=== PATIENT | female | born 1965 | race Caucasian/White ===

== ENCOUNTER → 2025-06-22 07:43 | Outpatient (REF) | payer OTHER, SELFPAY | LOC: MRI 3T 07:43 | PROVIDERS: ATTENDING PHYSICIAN Internal Medicine | DX: M51.9 Unspecified thoracic, thoracolumbar and lumbosacral intervertebral disc disorder (principal); M54.16 Radiculopathy, lumbar region | CPT/HCPCS: 72148 ==

== ENCOUNTER 2025-10-02 17:30 | Emergency (ER) | payer OTHER, SELFPAY ==
[2025-10-02 17:32] VITALS: BP 149/84
[2025-10-02 17:59] LABS: Urine Character Clear (Clear)
[2025-10-02 18:05] VITALS: BP 118/79
[2025-10-02 18:10] LABS: Urine Red Blood Cell 26-30 /HPF (0-2); Urine Squamous Cell 0-2 /LPF (Few)
[2025-10-02 18:11] VITALS: BMI 26.3
--- NOTE | 2025-10-02 18:29 | ED.GENMED ---
History of Present Illness
<Lidya Gaona, INFRASTRUCTURE ADMINISTRATOR - Last Filed: 10/02/25 19:59>
General
Chief Complaint: Abdominal Pain
Source: patient
Exam Limitations: none
Time Seen by Provider: 10/02/25 18:07
Nursing documentation reviewed up to this point in time: agreed with
History of Present Illness
History of Present Illness:
60-year-old female with history of frequent urinary tract infections presents for left flank and left-sided abdominal pain which she woke up with yesterday at 530 and it was 9/10 with nausea and vomited once. She took Tylenol which helped a little
and today her pain has persisted and is at this time 6/10. She denies fever or chills. She states this feels different than her UTIs although she does have some burning with urinating.
Past History
<Lidya Gaona, INFRASTRUCTURE ADMINISTRATOR - Last Filed: 10/02/25 19:59>
Past History
ED Past Medical History: None
ED Past Surgical History: None
Social History
Tobacco: Non-smoker
Alcohol: None
Drug: None
Living: alone
Employment: Employed
Review of Systems
<Lidya Gaona, INFRASTRUCTURE ADMINISTRATOR - Last Filed: 10/02/25 19:59>
Review of Systems
Allergies reviewed?: Yes
All Other Systems: ROS reviewed and negative except as documented in HPI and ROS
Phy Exam
<Lidya Gaona, INFRASTRUCTURE ADMINISTRATOR - Last Filed: 10/02/25 19:59>
Physical Exam
Physical Exam:
GENERAL: No acute distress. A&Ox3.
CONSTITUTIONAL: Afebrile.
EYES: clear, conjunctivae normal
ENMT: moist mucus membranes
RESPIRATORY: Regular respirations, nonlabored, lungs clear.
CARDIOVASCULAR: Regular rate and rhythm, no murmurs, no rubs.
GI: Soft, tender to palpate left abdomen, mild left flank tenderness. normal BS
MUSCULOSKELETAL: Moves with ease. Well perfused.
SKIN: Warm, dry, pink
PSYCH: Normal mood and affect. Well kept, interactive and appropriate
NEUROLOGIC: Awake, alert and oriented. No focal neurological deficits
Course
<Lidyarosibel Gaona, INFRASTRUCTURE ADMINISTRATOR - Last Filed: 10/02/25 19:59>
Orders/Labs/Results
Orders:
Orders
10/02/25 17:44
Urinalysis Reflex To Culture Urgent
Date Specimen was Collected: 10/02/25
Time Specimen was Collected: 17:39
Urine Microscopic Reflex Cult Urgent
Urine Culture Urgent
NORA Source: U
Specimen Description:
Date Specimen was Collected: 10/02/25
Time Specimen was Collected: 17:39
10/02/25 18:17
CT Abd/pel Without Iv Or Oral Urgent
Comment:
Reason For Exam: flank pain, hematuria
10/02/25 18:22
Complete Blood Count/With Diff Urgent
Comprehensive Metabolic Panel Urgent
10/02/25 18:27
Ketorolac [Toradol] 15 mg IV NOW STA
Ondansetron Injectable [Zofran] 4 mg IV NOW STA
10/02/25 19:44
Tamsulosin [Flomax] 0.4 mg PO NOW STA
10/02/25 19:54
Cephalexin Monohydrate [Keflex] 500 mg PO NOW STA
Abnormal Lab Results
10/02/25 10/02/25
17:44 18:22
RBC 3.98 L 10^6/uL
(4.20-5.40)
Hgb 11.6 L g/dL
(12.0-16.0)
Hct 33.9 L %
(37.0-47.0)
Sodium 133 L mmol/L
(135-145)
BUN 21 H mg/dl
(7-17)
Ur Occult Blood Reflex 4+ A
(Negative)
Urine Nitrite (Reflex) Positive A
(Negative)
Urine Bilirubin 1+ A
(Negative)
Leukocyte Esterase Rfl 3+ A
(Negative)
Urine RBC 26-30 A /HPF
(0-2)
Urine Bacteria (Reflex) Many A
(Negative)
Urine Albumin (Reflex) 1+ A
(Neg - Trace)
10/02/25 18:22
10/02/25 18:22
Vital Signs
Initial and Last Documented VS:
Initial Vital Signs
Temp Pulse Resp BP Pulse Ox
98.1 F 74 18 149/84 99
10/02/25 17:32 10/02/25 17:32 10/02/25 17:32 10/02/25 17:32 10/02/25 17:32
Last Documented Vital Signs
Temp Pulse Resp BP Pulse Ox
98.1 F 68 16 109/70 98
10/02/25 17:32 10/02/25 20:31 10/02/25 20:31 10/02/25 20:28 10/02/25 20:31
<Jennifer Varma, INFRASTRUCTURE ADMINISTRATOR - Last Filed: 10/03/25 15:39>
Orders/Labs/Results
Orders:
Orders
10/02/25 17:44
Urinalysis Reflex To Culture Urgent
Date Specimen was Collected: 10/02/25
Time Specimen was Collected: 17:39
Urine Microscopic Reflex Cult Urgent
Urine Culture Urgent
NORA Source: U
Specimen Description:
Date Specimen was Collected: 10/02/25
Time Specimen was Collected: 17:39
10/02/25 18:17
CT Abd/pel Without Iv Or Oral Urgent
Comment:
Reason For Exam: flank pain, hematuria
10/02/25 18:22
Complete Blood Count/With Diff Urgent
Comprehensive Metabolic Panel Urgent
10/02/25 18:27
Ketorolac [Toradol] 15 mg IV NOW STA
Ondansetron Injectable [Zofran] 4 mg IV NOW STA
10/02/25 19:44
Tamsulosin [Flomax] 0.4 mg PO NOW STA
10/02/25 19:54
Cephalexin Monohydrate [Keflex] 500 mg PO NOW STA
Abnormal Lab Results
10/02/25 10/02/25
17:44 18:22
RBC 3.98 L 10^6/uL
(4.20-5.40)
Hgb 11.6 L g/dL
(12.0-16.0)
Hct 33.9 L %
(37.0-47.0)
Sodium 133 L mmol/L
(135-145)
BUN 21 H mg/dl
(7-17)
Ur Occult Blood Reflex 4+ A
(Negative)
Urine Nitrite (Reflex) Positive A
(Negative)
Urine Bilirubin 1+ A
(Negative)
Leukocyte Esterase Rfl 3+ A
(Negative)
Urine RBC 26-30 A /HPF
(0-2)
Urine Bacteria (Reflex) Many A
(Negative)
Urine Albumin (Reflex) 1+ A
(Neg - Trace)
10/02/25 18:22
10/02/25 18:22
Vital Signs
Initial and Last Documented VS:
Initial Vital Signs
Temp Pulse Resp BP Pulse Ox
98.1 F 74 18 149/84 99
10/02/25 17:32 10/02/25 17:32 10/02/25 17:32 10/02/25 17:32 10/02/25 17:32
Last Documented Vital Signs
Temp Pulse Resp BP Pulse Ox
98.1 F 68 16 109/70 98
10/02/25 17:32 10/02/25 20:31 10/02/25 20:31 10/02/25 20:28 10/02/25 20:31
<Lidya Gaona, INFRASTRUCTURE ADMINISTRATOR - Last Filed: 10/02/25 19:59>
MDM/Problems Addressed
Differential Diagnosis Includes:
Kidney stone, pyelonephritis, UTI
MDM/Problems Addressed:
60-year-old female with history of frequent urinary tract infections presents for left flank and left-sided abdominal pain which she woke up with yesterday at 530 and it was 9/10 with nausea and vomited once. She took Tylenol which helped a little
and today her pain has persisted and is at this time 6/10. She denies fever or chills. She states this feels different than her UTIs although she does have some burning with urinating.
Afebrile, NAD
CBC with no clinically significant abnormality
CMP with no clinically significant abnormality
UA: Positive nitrites, 4+ blood, 3+ leukocytes, 26-30 RBCs, 6-10 WBCs, many bacteria
Will proceed to CT scan to rule out kidney stone
7:45 PM:
Since she is symptomatic with burning with urination and positive leukocytes and nitrates, will start her on an antibiotic. She states she's used Keflex successfully in the past.
Patient's PCP gave her a referral to urology and she has an appointment for early November.
<Lidya Gaona, INFRASTRUCTURE ADMINISTRATOR - Last Filed: 10/02/25 19:59>
*Pulse Oximetry
SaO2: 99
Oxygen Mode of Delivery: Room air
<Jennifer Varma, INFRASTRUCTURE ADMINISTRATOR - Last Filed: 10/03/25 15:39>
Update Note
Update Note:
Patient apparently home department today regarding prescriptions. According to patient she was told to prescription for Vicodin and Flomax will be sent to her pharmacy along with prescription for Keflex. Only the Keflex was received by the
pharmacy. I did not evaluate this patient however I reviewed the provider's chart and documentation reveals that Vicodin and Flomax were to be prescribed however no prescription was generated. I sent a prescription for Flomax 0.4 mg daily x 14
days and Vicodin 5/325 every 4 hours as needed for 10 tablets to her pharmacy. Patient to be notified by employee benefits administrator that prescriptions were sent.
ED Attending Note
<iLdya Gaona NP - Last Filed: 10/02/25 19:59>
-
Portions of this chart may have been created with voice recognition software.� Occasional wrong word or��sound alike� substitutions may have occurred due to the inherent limitations of voice recognition software.
Discharge Plan
Departure
Patient Disposition: Home (Routine Discharge)
Date of Disposition: 10/02/25
Time of Disposition: 20:15
Patient with high blood pressure during this ER visit?: No
Condition: Good
Discharge Problem:
Abdominal wall pain in left flank, UTI (urinary tract infection)
Instructions: Urinary tract infection in adults - ED (DC), Abdominal Pain
Prescriptions:
New
cephalexin 500 mg capsule
500 mg PO BID 7 Days Qty: 14 0RF
tamsulosin 0.4 mg capsule
0.4 mg PO DAILY Qty: 14 0RF
hydrocodone-acetaminophen 5-325 mg tablet
1 tab PO Q4H PRN (Reason: Pain) Qty: 10 0RF
No Action
hydrocodone-acetaminophen 1 TABLET tablet
1 tab PO DAILY
Cataflam
hydrocodone-acetaminophen 1 TABLET tablet
1 tab PO Q4HPRN PRN (Reason: severe pain) Qty: 20 0RF
Referrals:
Jace Gonzalez DO [Family Provider, Internal Medicine] - Follow up in 2-3 days
Cesar Luna MD [Active, Urology] - Keep scheduled appt
Activity Restrictions/Additional Instructions:
As we discussed, Ibuprofen 600 mg, with food, every 6 hours as needed for pain.
I sent a prescription to your pharmacy for Keflex antibiotic for urinary tract infection.
Return here immediately for fever, chills, vomiting or feeling sicker in any way
Interventions
Interventions:
*Risk Screen - Suicide Last Done: 10/02/25 17:32
*General Assessment Last Done: 10/02/25 18:12
*Neglect/Abuse Screening Last Done: 10/02/25 17:32
*ED- Fall Risk Assessment Last Done: 10/02/25 18:12
*ED COVID-19 Vaccine History Last Done: 10/02/25 17:32
*ED Influenza Vaccine History Last Done: 10/02/25 17:32
*Nursing Disposition Last Done: 10/02/25 20:37
[id number] Assessment Last Done: 10/02/25 18:12
Discharge Date and Time
Discharge Date/Time: 10/02/25 20:39
Print Language: [id number]
[2025-10-02 18:37] LABS: Hematocrit 33.9 % (37.0-47.0); Hemoglobin 11.6 g/dL (12.0-16.0); Mean Corp Hgb Conc. 34.2 g/dL (33.0-37.0); Mean Corpuscular Volume 85.2 fL (81.0-99.0); Nucleated Red Blood Cells % 0.3 %; Platelet Count 275 10^3/uL (130-400); Red Cell Dist. Width 11.9 % (11.5-14.5)
[2025-10-02 18:51] LABS: ALT (SGPT) 19 U/L (0-35); AST (SGOT) 24 U/L (14-36); Albumin 4.5 g/dl (3.5-5.0); Alkaline Phosphatase 38 U/L (38-126); Blood Urea Nitrogen 21 mg/dl (7-17); Calcium 9.6 mg/dl (8.4-10.2); Carbon Dioxide 29 mmol/L (22-30); Chloride 102 mmol/L (98-107); Estimated Creatinine Clearance 76 ml/min; Glucose 85 mg/dl (70-99); Potassium 4.3 mmol/L (3.5-5.1); Sodium 133 mmol/L (135-145); Total Protein 6.9 g/dl (6.3-8.2); eGFR > 60.00
[2025-10-02] MEDS: TORADOL 15 MG IV (19:51)
[2025-10-02] MEDS: FLOMAX 0.4 MG PO (19:53)
[2025-10-02] MEDS: ZOFRAN 4 MG IV (19:53)
[2025-10-02] MEDS: KEFLEX 500 MG PO (20:05)
[2025-10-02 20:28] VITALS: BP 109/70
== END 2025-10-02 20:39 | disposition home or self-care (01) ==
LOC: EMR 17:30
PROVIDERS: Emergency Medicine; Registered Nurse; EMERGENCY PHYSICIAN Emergency Medicine; FAMILY PHYSICIAN Internal Medicine
DX: N39.0 Urinary tract infection, site not specified (principal); Z87.440 Personal history of urinary (tract) infections
CPT/HCPCS: 99284; 96374; 96375; 74176; 80053; 81003; 81015; 85025; 87086